=== PATIENT | female | born 1990 | race Caucasian/White ===

== ENCOUNTER → 2021-11-14 13:51 | Outpatient (CLI) | payer BC, SELFPAY ==
--- NOTE | 2021-11-14 13:55 | DI.US.S_ITS ---
PROCEDURE: US OB <= 14 WEEKS FETUS INDICATIONS: DATES OUTSIDE/PRIOR DATING DATA: Last menstrual period (LMP): 08/19/21. LMP-based estimated date of delivery ([facility]): 06/15/22. First dating scan (date and location): Current study, 11/14/21. Estimated date of delivery ([facility]) from first dating scan: 06/27/22. The calculations are made using the first-trimester ultrasound [facility] of 06/27/22. TECHNIQUE: Real-time scanning was performed of the fetus and maternal pelvic organs, with image documentation. Endovaginal scanning was also performed to better visualize the fetus and maternal ovaries. COMPARISON: None. FINDINGS: Embryo: An intrauterine is present including a single pole with an average crown-rump length of 1.46 cm corresponding to a seven week six day plus or minus five days gestation. There is detectable cardiac activity in the fetus at a rate of 163 beats per minute. A normal yolk sac and unfused amnion are present. Heart rate: 163 Maternal organs: The uterus is anteverted. The cervix is closed. No perigestational hemorrhage. The ovaries have a normal appearance. A 2.3 cm corpus luteum is present on the left ovary. IMPRESSION: 1. Single viable intrauterine with a gestational age by crown-rump length of seven weeks six days plus or minus five days and sonographically derived due date of 06/27/22. We strive to produce accurate, complete, and clear reports of imaging services. To assist us in improving patient care, this report was composed using standard report templates and voice recognition software. Therefore, it may contain abnormal punctuation, insertions and/or omissions. Occasional wrong-word or sound-alike substitutions may occur. Though we review the report and make efforts to correct it, we do recommend that the report be read carefully in proper context to recognize any text inaccuracies. Dictated by: Arline Vaca M.D. on 11/14/2021 at 14:40 Approved by: Arline Vaca M.D. on 11/14/2021 at 14:44
[2021-11-14 15:06] LABS: Add Manual Diff / Slide Review NO; Basophils Absolute Auto 100 /uL (0-100); Basophils Percent Auto 0.6 % (0-2); Eosinophils Absolute Auto 0 /uL (0-450); Eosinophils Percent Auto 0.5 % (2-4); Hematocrit 38.8 % (36-46); Hemoglobin 13.1 g/dL (12.0-16.0); Lymphocytes Absolute Auto 1500 /uL (1100-4500); Lymphocytes Percent Auto 17.1 % (25-40); Mean Corpuscular HGB Conc 33.7 % (30-36); Mean Corpuscular Hemoglobin 30.4 PG (26-34); Mean Corpuscular Volume 90.1 fL (80-100); Monocytes Absolute Auto 800 /uL (0-900); Monocytes Percent Auto 8.5 % (3-14); Neutrophils Absolute Auto 6600 /uL (1500-7000); Neutrophils Percent Auto 73.3 % (50-75); Platelet Count 333 X10^3/uL (150-400); Red Blood Cell Count 4.31 X10^6/uL (4.0-5.2); Red Cell Distribution Width 12.6 % (11.6-14.8)
[2021-11-14 16:20] LABS: Hepatitis B Surface Antigen NEGATIVE s/c (NEGATIVE); Rubella Antibody IgG 96.8 IU/mL (>15)
[2021-11-14 16:21] LABS: Appearance Urine UA CLEAR; Bilirubin Urine UA NEGATIVE (NEGATIVE); Color Urine UA YELLOW; Glucose Urine UA NEGATIVE (Negative); Ketones Urine UA NEGATIVE (NEGATIVE); Leukocyte Esterase Urine UA NEGATIVE (NEGATIVE); Nitrite Urine UA NEGATIVE (Negative); Occult Blood Urine UA NEGATIVE (Negative); Protein Urine UA NEGATIVE (Negative); Specific Gravity Urine UA <=1.005 (1.000-1.035); Urobilinogen Urine UA 0.2 E.U./dL (0.2)
[2021-11-14 16:35] LABS: HIV 1 & 2 Ab/Ag 4th Gen Combo NEGATIVE (NEGATIVE); Hep C Virus Ab w/Reflex Quant NEGATIVE s/c (NEGATIVE)
[2021-11-15 06:08] LABS: RPR Screen Non Reactive (Non Reactive)
[2021-11-15 10:55] LABS: Varicella IgG Antibody 611 index (Immune >165)
== END ==
PROVIDERS: PCP Physician Assistant; Referring Provider Family Medicine; Visit Provider Family Medicine
DX: Z36.87 Encounter for antenatal screening for uncertain dates (principal); Z3A.01 Less than 8 weeks gestation of pregnancy
CPT/HCPCS: 36415; 76801; 76817; 80055; 81003; 86787; 86803; 86850; 86900; 86901; 87086; 87389

== ENCOUNTER → 2022-01-24 14:14 | Outpatient (CLI) | payer BC, SELFPAY ==
[2022-01-27 14:20] LABS: AFP, Serum 50.2 ng/mL (.); Calc Gestational Age Ultrasound (.); Estriol, Free 1.22 ng/mL (.); Inhibin A, Dimeric 235.33 pg/mL (.); Inhibin A, MoM 1.19 (.); Maternal Ethnicity Caucasian (.); Maternal Weight 108 lbs (.); Number of Fetuses No (.); OSBR Risk 1 IN 10000 (.); Results Report (.); Test Results *Screen Negative* (.); hCG, MoM 1.21 (.); hCG, Serum 44924 mIU/mL (.)
== END ==
PROVIDERS: PCP Physician Assistant; Referring Provider Family Medicine; Visit Provider Family Medicine
DX: Z34.90 Encounter for supervision of normal pregnancy, unspecified, unspecified trimester (principal)
CPT/HCPCS: 36415; 82105; 82677; 84702; 86336

== ENCOUNTER → 2022-02-12 12:44 | Outpatient (CLI) | payer BC, SELFPAY ==
--- NOTE | 2022-02-12 12:45 | DI.US.S_ITS ---
PROCEDURE: US OB >= 14 WEEKS FETUS INDICATIONS: ANATOMY OUTSIDE/PRIOR DATING DATA: Last menstrual period (LMP): 09/08/2021. LMP-based estimated date of delivery ([facility]): 06/15/2022. First dating scan (date and location): 11/14/2021. Estimated date of delivery ([facility]) from first dating scan: 06/27/2022. The calculations are made using the ultrasound [facility] of 06/27/2022. TECHNIQUE: Real-time scanning was performed of the fetus, with image documentation and biometric measurements. COMPARISON: [facility], , OB <= 14 WEEKS FETUS, 11/14/2021, 14:03. FINDINGS: General: A single living intrauterine gestation is present. Presentation: Vertex. Placenta: Placental position is anterior, without previa. Amniotic fluid index: 15.4 cm, normal range is 5-24 cm. Single deepest vertical pocket is 4.7 cm. heart rate: 155 beats per minute. Maternal cervical canal: 3.6 cm long. Normal lower limit is 2.5 cm. biometrics: Biparietal diameter: 4.9 cm, 20 weeks 6 days Head circumference: 18.6 cm, 21 weeks 0 days Abdominal circumference: 16.0 cm, 21 weeks 1 day Femur length: 3.2 cm, 20 weeks 0 days Composite gestational age from initial ultrasound: 20 weeks 5 days Composite gestational age from present scan: 20 weeks 5 days Estimated weight and percentile: 366 g, 40th percentile Anatomic survey: Neuro: Ventricles are non-dilated at less than 10 mm. Cisterna magna is normal at 3-11 mm. Cerebellum is normal in size and morphology. Nuchal skin fold: Normal at less than 6 mm between 14-21 weeks gestational age. Face: Nose and lips, facial profile are normal. Spine: No evidence for spina bifida. Heart: 4-chambered heart is present, with normal ventricular outflow tracts. Diaphragm: Diaphragm is intact. Stomach: Left-sided stomach is present. Kidneys: No hydronephrosis. Normal is less than 5 mm in 2nd trimester, less than 7 mm in 3rd trimester. Cord: 3-vessel cord has orthotopic insertion. Bladder: Normal in size. Extremities: All 4 extremities identified. IMPRESSION: 1. Vicente living intrauterine at 20 weeks 5 days based on today's ultrasound. This is concordant with the prior ultrasound. There is expected interval growth. 2. Normal placenta and amniotic fluid. 3. Normal and complete anatomic survey. We strive to produce accurate, complete, and clear reports of imaging services. To assist us in improving patient care, this report was composed using standard report templates and voice recognition software. Therefore, it may contain abnormal punctuation, insertions and/or omissions. Occasional wrong-word or sound-alike substitutions may occur. Though we review the report and make efforts to correct it, we do recommend that the report be read carefully in proper context to recognize any text inaccuracies. Dictated by: Henrik Cornejo M.D. on 02/12/2022 at 15:45 Approved by: Henrik Cornejo M.D. on 02/12/2022 at 15:49
== END ==
PROVIDERS: PCP Physician Assistant; Referring Provider Family Medicine; Visit Provider Family Medicine
DX: Z36.89 Encounter for other specified antenatal screening (principal); Z3A.20 20 weeks gestation of pregnancy
CPT/HCPCS: 76811

== ENCOUNTER → 2022-03-21 12:53 | Outpatient (CLI) | payer BC, SELFPAY ==
[2022-03-21 14:48] LABS: Hematocrit 36.4 % (36-46); Hemoglobin 12.8 g/dL (12.0-16.0)
[2022-03-21 15:02] LABS: GTT (PREG) 1 Hour PP 50gm Dose 89 mg/dL (76-139)
== END ==
PROVIDERS: PCP Physician Assistant; Referring Provider Family Medicine; Visit Provider Family Medicine
DX: Z3A.36 36 weeks gestation of pregnancy (principal); Z34.92 Encounter for supervision of normal pregnancy, unspecified, second trimester; Z3A.26 26 weeks gestation of pregnancy
CPT/HCPCS: 36415; 82950; 85014; 85018

== ENCOUNTER → 2022-05-30 15:18 | Outpatient (CLI) | payer BC, SELFPAY ==
[2022-05-31 14:54] LABS: Strep Grp B PCR POS for Grp B Strep
== END ==
PROVIDERS: PCP Physician Assistant; Visit Provider Family Medicine
DX: Z34.93 Encounter for supervision of normal pregnancy, unspecified, third trimester (principal); Z3A.36 36 weeks gestation of pregnancy
CPT/HCPCS: 87653

== ENCOUNTER 2022-06-27 14:54 | Inpatient (IN) | payer BC, SELFPAY ==
--- NOTE | 2022-06-27 15:41 | P.HPOB_ITS ---
OB HPI Date/Time Date of admission: 06/27/22 Date Patient Seen: 06/27/22 Time Patient Seen: 15:41 History of Present Condition Chief complaint: obs [facility] Calculator Estimated Delivery Date Method Current WG Current Estimate 06/27/22 Ultrasound #1 40w 0d Other Estimates 06/15/22 LMP (Certain) 41w 5d Estimated Gestational Age (weeks): 40 : 1 Para: 0 Narrative: 31-year-old at 40 weeks gestation. She presented to her scheduled OB appointment today with leaking of clear fluid. No bleeding. She was sent to the center and found to be AmniSure positive. Baby has been active. She has been colby irregularly all day and rates her pain a 3/10. has been uncomplicated. She is quite petite and her is about a foot tolerated than her. Mother had all C-sections. care: good care, initiated at week # (10), number of visits (13) and pounds weight gain (31) Dating criteria OB: based on 1st trimester US only Ultrasounds: normal 1st trimester US and normal mid trimester US Obstetrical complications: none Medical complications OB: none Preadmission Labs Last OB Lab Results: Blood Type O Positive 11/14/21 14:43 Antibody Screen Negative 11/14/21 14:43 Hematocrit 40.0 % (36-46) 06/27/22 16:00 Hemoglobin 14.1 g/dL (12.0-16.0) 06/27/22 16:00 Hepatitis B Surface Antigen Negative s/c (NEGATIVE) 11/14/21 14 :43 Hepatitis C Antibody Negative s/c (NEGATIVE) 11/14/21 14:43 Rubella Antibody 96.8 IU/mL (>15) 11/14/21 14:43 Varicella-Zoster IgG Antibody 611 index (Immune >165) 11/14/21 14:43 Glucose 1 Hour 89 mg/dL (76-139) 03/21/22 12:57 Group B Streptococcus (PCR) Pos for grp b strep H 05/30/22 15:1 8 -: Chlamydia screen: negative, Gonorrhea screen: negative and Urine: negative -: PAP smear: Normal Genetic Screens: Quad screen: Normal External Labs -: Urine: negative Evaluation Evaluation Baseline heart rate: 135 Variability: Moderate (11-25) monitor accelerations: Present Monitor Decelerations: Absent Contraction Frequency (minutes): 3 Status: Category l Dilation (cm): 2 Effacement (%): 90 station: -2 Non-invasive Membranes Rupture Test: positive [facility] Medical History Abnormal Pap smear of cervix (~2010) Asthma (~2012) Seasonal allergies (~2013) Family History Father Hypertension Hyperlipidemia Mother Hypertension History of recurrent miscarriages Grandfather Myocardial infarction Grandmother History of blood clots Uterine cancer Factor V Leiden Grandfather Cancer Lung cancer Cancer of kidney Grandmother Heart valve disease Celiac disease Heart murmur Family/Other Factor V Leiden carrier Family/Other Breast cancer metastasized to lung Social History marital status: unmarried,living together number of children: 0 household members: significant other lives independently: Yes caregiver/support person: No housing: house pets and animals: Yes (2 dogs: safe) education level: college (BA Biology) occupational status: employed ([employer], 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 ) current occupational exposures/hazards: No special jerry needs: No seatbelt use: always do you feel safe at home: Yes Smoking Status: Never smoker second hand exposure: No alcohol intake: former (Pre-: 0-2 drinks/week. ) substance use type: does not use during the past year weight has: remained stable well-balanced diet: daily or most days daily servings fruits/ve-4 caffeine: No Type(s) of exercise: walking, bicycling and swimming frequency: 3-4 times per week duration: 30-45 minutes/day Meds Home Medications and Allergies Home Medications Medication Instructions Recorded Confirmed Type prenat.vits,romel,[id number] 1 tab PO DAILY 11/27/21 04/11/22 History Allergies Allergy/AdvReac Type Severity Reaction Status Date / Time No Known Drug Allergies Allergy Verified 04/11/22 14:24 Review of Systems Review of Systems ROS: Yes All systems reviewed with the patient and are negative except as otherwise documented OB Exam Narrative Exam Narrative: Temperature 36.3? blood pressure 112/67 heart rate 80 HENMT Head: normal to inspection Mouth: oral mucosae normal Eyes General: appearance normal, both eyes and all related structures Resp Effort & Inspection: normal respiratory effort Auscultation: clear to auscultation bilaterally Cardio Rate: regular rate Rhythm: regular rhythm Heart Sounds: S1 normal and S2 normal Extremities Lower extremity: Yes normal to inspection; No edema Presentation: vertex Estimated Weight (lbs): 7 Amniotic Fluid: clear Objective Labs Result Diagrams: 06/27/22 16:00 Assessment and Plan Assessment and Plan Assessment and Plan narrative: 31-year-old at 40 weeks gestation with spontaneous rupture of membranes at approximately 1:30 p.m. today with clear fluid. She is GBS positive. She is colby spontaneously though not yet in active labor. Plan Admit now, labs and COVID swab Begin penicillin for GBS prophylaxis Discussed starting Pitocin in the next couple of hours if she does not progress into active labor spontaneously Patient desires natural methods for pain control
[2022-06-27] MEDS: LACTATED RINGERS 1,000 ML 100 ML IV (16:16)
[2022-06-27] MEDS: PENICILLIN G POTASSIUM 5,000,000 UNIT in DEXTROSE 5% IN WATER 250 ML 250 UNIT IV (16:16)
[2022-06-27 16:19] LABS: Add Manual Diff / Slide Review NO; Basophils Absolute Auto 100 /uL (0-100); Basophils Percent Auto 0.5 % (0-2); Eosinophils Absolute Auto 100 /uL (0-450); Eosinophils Percent Auto 0.4 % (2-4); Hemoglobin 14.1 g/dL (12.0-16.0); Lymphocytes Absolute Auto 1200 /uL (1100-4500); Lymphocytes Percent Auto 8.5 % (25-40); Mean Corpuscular HGB Conc 35.1 % (30-36); Mean Corpuscular Hemoglobin 32.3 PG (26-34); Monocytes Absolute Auto 1200 /uL (0-900); Monocytes Percent Auto 8.5 % (3-14); Neutrophils Absolute Auto 12000 /uL (1500-7000); Neutrophils Percent Auto 82.1 % (50-75); Platelet Count 239 X10^3/uL (150-400); Red Blood Cell Count 4.35 X10^6/uL (4.0-5.2); Red Cell Distribution Width 12.8 % (11.6-14.8); White Blood Cell Count 14.6 X10^3/uL (4.5-11.0)
[2022-06-27 16:50] LABS: COVID19 -Nasal RAPID Negative (Negative)
[2022-06-27 18:18] VITALS: BP 112/67
[2022-06-27] MEDS: PENICILLIN G POTASSIUM 3,000,000 UNIT/50 ML FROZ.PIGGY 100 UNIT IV (19:25)
--- NOTE | 2022-06-27 21:17 | P.PCNOB_ITS ---
Labor & Delivery Delivery date: 06/27/22 Delivery monitor: external FHT Route of delivery: L&D Laceration Description: Vaginal - 1st Degree Delivery repair: chromic Estimated blood loss (mL): 300 Anesthesia Type: None Narrative: Patient is a 31-year-old at 40 weeks who gave on 06/27/22 at 8:35 p.m.. [facility]: 06/27/22 Hospital problems: 40 weeks of Spontaneous vaginal delivery STAGE I: Labor Patient presented after spontaneous rupture of membranes at approximately 1:30 p.m. with clear fluid. She progressed into labor spontaneously and utilized natural methods for pain control. She was complete at 7:30 p.m.. She was GBS positive and received 2 doses of antibiotics prior to stage II. EFM category 1 and 2 due to periods of minimal variability and non-recurrent variable decelerations with recovery back to category 1. STAGE II: Delivery She was complete and pushed for an hour and 5 minutes. At the end of stage II there was concern for a pseudosinusoidal pattern on the EFM. Resuscitation attempts were made with IV fluid bolus and oxygen. Dr. Chun, LAMINATION MACHINE OPERATOR, was standing by in case of the need for assisted delivery however patient pushed very well over 1 contraction and delivered a vigorous female infant at 8:35 p.m.. The head delivered easily, a nuchal cord was reduced then remainder of the body delivered. was placed on mother's abdomen. Cord was clamped and cut after approximately 1 minute delay. Apgars were 8 and 9. No resuscitation of the required beyond drying and stimulating. STAGE III: Placenta/Cord Placenta delivered at 8:41 p.m. after active management and appeared intact with a three-vessel cord. Pitocin bolus given after delivery of placenta in the IV and fundus firm. A short first-degree vaginal laceration was repaired with 3-0 chromic with good hemostasis. EBL: 300 mL. Needle and sponge counts were correct. The vagina was inspected and no items were left in situ. Patient was doing well with her and partner at bedside. [place] Baby 1: gender: Female Presentation: vertex Position: Right Occiput Anterior Placenta delivery description: Spontaneous Cord Vessel Description: 3 Vessels and Nuchal Cord (x1) score (1 min): 8 score (5 min): 9 Plan for aftercare: Routine care
[2022-06-27] MEDS: LIDOCAINE 1% 20 ML (22:14)
[2022-06-27] MEDS: DERMOPLAST SPRAY 20% 60 ML 1 SPRAY TOP (22:14)
[2022-06-27] MEDS: IBUPROFEN 600 MG TABLET PO (22:15)
[2022-06-27] MEDS: ACETAMINOPHEN 325 MG TABLET 650 MG PO (22:15)
[2022-06-28] MEDS: IBUPROFEN 600 MG TABLET PO ×3 (04:23→18:12)
[2022-06-28] MEDS: ACETAMINOPHEN 325 MG TABLET 650 MG PO ×3 (04:23→18:13)
--- NOTE | 2022-06-28 09:16 | PM.OBPN.1 ---
Subjective - OB Subjective Patient comments: no complaints [place] baby status: doing well and nursing well feeding status: exclusively breast feeding Date Patient Seen: 06/28/22 Time Patient Seen: 09:00 Interval history: No complaints this morning. Bleeding is moderate as expected and pain well controlled. She is ambulating and voiding without difficulty. Tolerating a diet. No issues in the . Exam Vital Signs (past 8 hours): Temperature 97.8? blood pressure 98/51 heart rate 65 Narrative Exam Narrative: General: Awake and alert, no acute distress. HEENT: NCAT, EOMI, moist oral mucosa CV: Regular rate and rhythm, no murmurs, rubs or gallops Lungs: CTAB, no wheezes, rales, or rhonchi Abdomen: Soft, nontender; bowel tones active; uterus firm at umbilicus with slight deviation to the right Extremities: Warm, no edema Objective Labs Result Diagrams: 06/27/22 16:00 Labs: Laboratory Results - last 24 hr 06/27/22 06/27/22 06/27/22 16:00 16:00 16:00 WBC 14.6 H RBC 4.35 Hgb 14.1 Hct 40.0 MCV 92.0 MCH 32.3 MCHC 35.1 RDW 12.8 Plt Count 239 Neut % (Auto) 82.1 H Lymph % (Auto) 8.5 L [place] % (Auto) 8.5 Eos % (Auto) 0.4 L Baso % (Auto) 0.5 Neut # (Auto) 51338 H Lymph # (Auto) 1200 [place] # (Auto) 1200 H Eos # (Auto) 100 Baso # (Auto) 100 SARS-CoV-2 (PCR) Negative Blood Type O Positive Antibody Screen Negative Assessment & Plan Plan day: 1 plan OB: routine care Comments: 31-year-old after uncomplicated spontaneous vaginal delivery. She is ambulating, voiding and tolerating a diet. Vaginal bleeding as expected. Pain well controlled. is not 24 hours old until later this evening. Anticipate discharge home tomorrow. Time Spent With Patient Time: Total time spent is greater than 50% in coordination of care (as documented) at patient's floor/unit and/or counseling patient: Time with patient: less than 15 minutes
[2022-06-28] MEDS: DOCUSATE 100 MG CAPSULE PO (18:13)
[2022-06-29] MEDS: IBUPROFEN 600 MG TABLET PO ×2 (00:21→09:09)
[2022-06-29] MEDS: ACETAMINOPHEN 325 MG TABLET 650 MG PO ×2 (00:21→09:10)
[2022-06-29] MEDS: DOCUSATE 100 MG CAPSULE PO (09:09)
--- NOTE | 2022-06-29 09:33 | P.DS_ITS ---
Discharge Providers Provider Date of admission: 06/27/22 14:54 Discharge Date: 06/29/22 Primary care physician: Yessica Mesa PA-C Consults: 06/28/22 21:44 Consult to Database Development Project Manager Routine Comment: Discharge provider: Judi Pantoja DO Summary Hospital Course Date Patient Seen: 06/29/22 Time Patient Seen: 10:01 Diagnoses: 40 weeks of Spontaneous vaginal delivery GBS positive Hospital Course: 31-year-old after uncomplicated spontaneous vaginal delivery at 40 weeks gestation on 06/27/22. Patient presented with spontaneous rupture of membranes with clear fluid and progressed into active labor. She received 2 doses of antibiotics for GBS prophylaxis prior to delivery. She delivered a vigorous female infant weighing 5 lb 7 oz. course uncomplicated. She was ambulating, voiding and passing flatus. Tolerating a diet and pain well controlled. Bleeding decreasing. No issues with breast-feeding with the . Advised patient to call for fevers, severe pain or bleeding through more than a pad an hour. Follow-up in clinic in 6 weeks or sooner if needed. Peripartum Data Infant Delivery Method: Natural Vaginal Laceration Description: Vaginal - 1st Degree complications: none [place] 1: Gender: Female Disposition of : home Discharge Diagnosis (1) 40 weeks gestation of : Status: Acute (2) Spontaneous vaginal delivery: Status: Acute Status at Discharge Cognitive/behavioral status at discharge: at baseline, oriented Functional status at discharge: independent ambulation Overall status at discharge: patient is progressing back to baseline Time Spent with Patient Time attestation: Total time spent providing and/or coordinating discharge services: Time spent: Less than 30 minutes Objective Labs Result Diagrams: 06/27/22 16:00 Exam Vital Signs (past 8 hours): Temperature 98.4? blood pressure 105/62 heart rate 62 respirations 16 Narrative Exam Narrative: General: Awake and alert, no acute distress. HEENT: NCAT, EOMI, moist oral mucosa CV: Regular rate and rhythm, no murmurs, rubs or gallops Lungs: CTAB, no wheezes, rales, or rhonchi Abdomen: Soft, nontender; bowel tones active; uterus firm at umbilicus Extremities: Warm, no edema Discharge Plan Discharge Plan Patient Disposition: Home Discharge orders & Medications Prescriptions: New docusate sodium 100 mg Capsule 100 mg PO DAILY Qty: 30 0RF ibuprofen 600 mg Tablet 600 mg PO Q6HR PRN (Reason: Pain, Mild (1-3)) Qty: 30 0RF Continued prenat.vits,romel,[id number] Tablet 1 tab PO DAILY Follow up/Referrals: Judi Pantoja DO [Physician] - 6 Weeks (We will schedule your 6 week visit when we see you at the visit) Yessica Mesa, PAAllenC [Primary Care Provider] - Skin/Wound/Dressing Care Report to your healthcare provider any signs of infection, such as:: chills, fever, night sweats and increased pain Visit Report/Discharge Packet Stand Alone Forms: Discharge: Care Visit Report Forms: Patient Portal/API, Stroke Signs & Symptoms Discharge Data Primary Care Provider: Yessica Mesa Attending Provider: Judi Pantoja Admit Date/Time: 06/27/22 14:54
== END 2022-06-29 10:40 | disposition home or self-care (01) | DRG 807 ==
PROVIDERS: Admitting Provider Family Medicine; PCP Physician Assistant; Referring Provider Family Medicine; Visit Provider Family Medicine
DX: O42.02 Full-term premature rupture of membranes, onset of labor within 24 hours of rupture (principal); Z37.0 Single live birth; O99.824 Streptococcus B carrier state complicating childbirth; O76 Abnormality in fetal heart rate and rhythm complicating labor and delivery; O69.81X0 Labor and delivery complicated by cord around neck, without compression, not applicable or unspecified; O70.0 First degree perineal laceration during delivery; Z3A.40 40 weeks gestation of pregnancy; Z20.822 Contact with and (suspected) exposure to COVID-19
CPT/HCPCS: 36415; 59050; 59400; 85025; 86850; 86900; 86901; 87635; C9803; G0378; G0379; J2540

== ENCOUNTER → 2022-08-13 15:28 | Outpatient (CLI) | payer BC, SELFPAY | PROVIDERS: PCP Physician Assistant; Referring Provider Family Medicine; Visit Provider Family Medicine | DX: Z13.89 Encounter for screening for other disorder (principal); Z83.2 Family history of diseases of the blood and blood-forming organs and certain disorders involving the immune mechanism | CPT/HCPCS: 36415; 81241 ==

== ENCOUNTER → 2024-07-08 10:56 | Outpatient (CLI) | payer BC, SELFPAY ==
[2024-07-08 12:10] LABS: Natera Collection Specimen Collected
[2024-07-08 12:20] LABS: Add Manual Diff / Slide Review NO; Basophils Absolute Auto 0 /uL (0-100); Basophils Percent Auto 0.3 % (0-2); Eosinophils Absolute Auto 100 /uL (0-450); Eosinophils Percent Auto 1.2 % (2-4); Hematocrit 39.6 % (36-46); Hemoglobin 13.8 g/dL (12.0-16.0); Lymphocytes Absolute Auto 2200 /uL (1100-4500); Lymphocytes Percent Auto 19.5 % (25-40); Mean Corpuscular HGB Conc 34.9 % (30-36); Mean Corpuscular Hemoglobin 29.8 PG (26-34); Mean Corpuscular Volume 85.5 fL (80-100); Monocytes Absolute Auto 700 /uL (0-900); Monocytes Percent Auto 6.7 % (3-14); Neutrophils Absolute Auto 8100 /uL (1500-7000); Neutrophils Percent Auto 72.3 % (50-75); Platelet Count 500 X10^3/uL (150-400); Red Blood Cell Count 4.63 X10^6/uL (4.0-5.2); White Blood Cell Count 11.2 X10^3/uL (4.5-11.0)
[2024-07-08 13:07] LABS: Appearance Urine UA CLEAR; Bilirubin Urine UA NEGATIVE (NEGATIVE); Color Urine UA YELLOW; Glucose Urine UA NEGATIVE (Negative); Ketones Urine UA NEGATIVE (NEGATIVE); Leukocyte Esterase Urine UA NEGATIVE (NEGATIVE); Nitrite Urine UA NEGATIVE (Negative); Occult Blood Urine UA NEGATIVE (Negative); Protein Urine UA NEGATIVE (Negative); Specific Gravity Urine UA <=1.005 (1.000-1.035); Urobilinogen Urine UA 0.2 E.U./dL (0.2)
[2024-07-08 13:10] LABS: pH Urine UA 5.5 (4.5-8.0)
[2024-07-09 06:10] LABS: RPR Screen Non Reactive (Non Reactive)
[2024-07-09 10:12] LABS: Varicella IgG Antibody 778 index (Immune >165)
[2024-07-09 20:06] LABS: HIV 1 & 2 Ab/Ag 4th Gen Combo NEGATIVE (NEGATIVE); Hep C Virus Ab w/Reflex Quant NEGATIVE s/c (NEGATIVE)
[2024-07-09 20:07] LABS: Hepatitis B Surface Antigen NEGATIVE s/c (NEGATIVE)
== END ==
LOC: LAB 10:57
PROVIDERS: PCP Student in an Organized Health Care Education/Training Program; Referring Provider Student in an Organized Health Care Education/Training Program; Visit Provider Student in an Organized Health Care Education/Training Program
DX: Z34.80 Encounter for supervision of other normal pregnancy, unspecified trimester (principal)
CPT/HCPCS: 36415; 80055; 81003; 86787; 86803; 86850; 86900; 86901; 87086; 87147; 87389

== ENCOUNTER → 2024-09-13 13:46 | Outpatient (CLI) | payer BC, SELFPAY ==
--- NOTE | 2024-09-13 13:48 | DI.US.S_ITS ---
PROCEDURE: US OB >= 14 WEEKS FETUS INDICATIONS: 20 wk anatomy scan OUTSIDE/PRIOR DATING DATA: Last menstrual period (LMP): 04/22/2024 LMP-based estimated date of delivery ([facility]): 01/27/2025 First dating scan (date and location): 07/08/2024 Estimated date of delivery ([facility]) from first dating scan: 01/27/2025 TECHNIQUE: Real-time scanning was performed of the fetus, with image documentation and biometric measurements. COMPARISON: 1st trimester dating not available for review FINDINGS: General: A single living intrauterine gestation is present. Presentation: Vertex. Placenta: Placental position is posterior , without previa. Amniotic fluid index: 16.5 cm, normal range is 5-24 cm. Single deepest vertical pocket is 4.8 cm. heart rate: 147 beats per minute. Maternal cervical canal: 4.2 cm long. Normal lower limit is 2.5 cm. biometrics: Biparietal diameter: 4.6 cm, 20 weeks Head circumference: 16.8 cm, 19 weeks and 3 days Abdominal circumference: 14.6 cm, 19 weeks and 6 days Femur length: 3.1 cm, 19 weeks and 4 days Clinically estimated gestational age: 20 weeks and 4 days Composite gestational age from present scan: 19 weeks and 5 days Estimated weight and percentile: 310 g, 11% Anatomic survey: Neuro: Ventricles are non-dilated at less than 10 mm. Cisterna magna is normal at 3-11 mm. Cerebellum is normal in size and morphology. Nuchal skin fold: Normal at less than 6 mm between 14-21 weeks gestational age. Face: Nose and lips, facial profile is normal. Spine: No evidence for spina bifida. Heart: 4-chambered heart is present, with normal ventricular outflow tracts. Diaphragm: Diaphragm is intact. Stomach: Left-sided stomach is present. Kidneys: No hydronephrosis. Normal is less than 5 mm in 2nd trimester, less than 7 mm in 3rd trimester. Cord: 3-vessel cord has orthotopic insertion. Bladder: Normal in size. Extremities: All 4 extremities identified. IMPRESSION: Living intrauterine gestation at 20 weeks and 4 days. EFW at the 11th percentile, lower limit of normal. No significant abnormalities on routine anatomic survey. Normal TONI. Dictated by: Colt Leon M.D. on 09/13/2024 at 18:24 Approved by: Clot Leon M.D. on 09/13/2024 at 18:28
== END ==
PROVIDERS: PCP Student in an Organized Health Care Education/Training Program; Referring Provider Student in an Organized Health Care Education/Training Program; Visit Provider Student in an Organized Health Care Education/Training Program
DX: Z3A.20 20 weeks gestation of pregnancy; Z34.82 Encounter for supervision of other normal pregnancy, second trimester
CPT/HCPCS: 76811

== ENCOUNTER → 2024-10-20 13:54 | Outpatient (CLI) | payer BC, SELFPAY ==
[2024-10-20 16:51] LABS: Hematocrit 35.3 % (36-46); Hemoglobin 12.1 g/dL (12.0-16.0)
[2024-10-21 14:32] LABS: GTT (PREG) 1 Hour PP 50gm Dose 150 mg/dL (76-139)
== END ==
PROVIDERS: PCP Student in an Organized Health Care Education/Training Program; Referring Provider Student in an Organized Health Care Education/Training Program; Visit Provider Student in an Organized Health Care Education/Training Program
DX: Z34.02 Encounter for supervision of normal first pregnancy, second trimester (principal); Z3A.24 24 weeks gestation of pregnancy
CPT/HCPCS: 82950; 85014; 85018

== ENCOUNTER → 2024-11-04 07:46 | Outpatient (CLI) | payer BC, SELFPAY ==
[2024-11-04 10:04] LABS: Glucose 1 Hour Gest 134 mg/dL (76-180)
[2024-11-04 12:19] LABS: Glucose 2 Hour Gest 85 mg/dL (76-155)
[2024-11-04 13:17] LABS: Glucose Tol Interp,Gestational INTERPRETATION
[2024-11-04 13:22] LABS: Glucose 3 Hour Gest 102 mg/dL (76-140)
[2024-11-04 20:28] LABS: Glucose Fasting Gestational 66 mg/dL (76-95)
== END ==
PROVIDERS: PCP Student in an Organized Health Care Education/Training Program; Referring Provider Family Medicine; Visit Provider Family Medicine
DX: R73.09 Other abnormal glucose (principal)
CPT/HCPCS: 36415; 82951; 82952

== ENCOUNTER → 2024-11-22 14:10 | Outpatient (CLI) | payer BC, SELFPAY ==
--- NOTE | 2024-11-22 14:11 | DI.US.S_ITS ---
PROCEDURE: US OB LIMITED INDICATIONS: Growth OUTSIDE/PRIOR DATING DATA: Last menstrual period (LMP): 04/22/2024. LMP-based estimated date of delivery ([facility]): 01/27/2025. First dating scan (date and location): 07/08/2024. Estimated date of delivery ([facility]) from first dating scan: 01/27/2025. The calculations are made using the Clinical/ultrasound [facility] of 01/27/2025. TECHNIQUE: Real-time scanning was performed of the fetus, with image documentation and biometric measurements. COMPARISON: [facility], , OB >= 14 WEEKS FETUS, 09/13/2024, 14:06. FINDINGS: General: A single living intrauterine gestation is present. Presentation: Transverse. Placenta: Placental position is posterior , without previa. Amniotic fluid index: 15.5 cm, normal range is 5-24 cm. Single deepest vertical pocket is 4.6 cm. heart rate: 137 beats per minute. Maternal cervical canal: 4.6 cm long. Normal lower limit is 2.5 cm. biometrics: Biparietal diameter: 7.6 cm 30 weeks 3 days Head circumference: 27.8 cm 30 weeks 3 days Abdominal circumference: 25.6 cm 29 weeks 5 days Femur length: 5.5 cm 28 weeks 6 days Clinically estimated gestational age: 30 weeks 4 days Composite gestational age from present scan: 29 weeks 6 days Estimated weight and percentile: 1416 g, 12th percentile Other: Not applicable. IMPRESSION: Single live intrauterine with gestational age today 29 weeks 6 days. Estimated weight is at the 12th percentile compared to 11th percentile on prior exam. Findings are concerning for possible intrauterine growth restriction/macrosomia. Continued clinical and ultrasound follow-up is recommended. We strive to produce accurate, complete, and clear reports of imaging services. To assist us in improving patient care, this report was composed using standard report templates and voice recognition software. Therefore, it may contain abnormal punctuation, insertions and/or omissions. Occasional wrong-word or sound-alike substitutions may occur. Though we review the report and make efforts to correct it, we do recommend that the report be read carefully in proper context to recognize any text inaccuracies. Dictated by: Pauly Mendez M.D. on 11/23/2024 at 22:24 Approved by: Pauly Mendez M.D. on 11/23/2024 at 22:26
== END ==
PROVIDERS: PCP Student in an Organized Health Care Education/Training Program; Referring Provider Student in an Organized Health Care Education/Training Program; Visit Provider Student in an Organized Health Care Education/Training Program
DX: O36.5930 Maternal care for other known or suspected poor fetal growth, third trimester, not applicable or unspecified (principal); Z3A.29 29 weeks gestation of pregnancy
CPT/HCPCS: 76815

== ENCOUNTER → 2024-12-20 08:31 | Outpatient (CLI) | payer BC, SELFPAY ==
--- NOTE | 2024-12-20 08:32 | DI.US.S_ITS ---
PROCEDURE: US OB LIMITED INDICATIONS: EFW OUTSIDE/PRIOR DATING DATA: Last menstrual period (LMP): 04/22/2024. LMP-based estimated date of delivery ([facility]): 01/27/2023. First dating scan (date and location): 07/08/2024. Estimated date of delivery ([facility]) from first dating scan: 01/27/2025. The calculations are made using the Clinical/ultrasound [facility] of 01/27/2025. TECHNIQUE: Real-time scanning was performed of the fetus, with image documentation and biometric measurements. COMPARISON: [facility], OB LIMITED, 11/22/2024, 14:31. FINDINGS: General: A single living intrauterine gestation is present. Presentation: Vertex. Placenta: Placental position is fundal , without previa. Amniotic fluid index: 13.4 cm, normal range is 5-24 cm. Single deepest vertical pocket is 5.9 cm. heart rate: 133 beats per minute. Maternal cervical canal: Not visualized biometrics: Biparietal diameter: 8.1 cm 32 weeks 4 days Head circumference: 30.6 cm 34 weeks 1 Abdominal circumference: 30.4 cm 34 weeks 3 days Femur length: 6.2 cm 32 weeks 2 days Clinically estimated gestational age: 34 weeks 4 days Composite gestational age from present scan: 34 weeks 3 days Estimated weight and percentile: 2225 g 19th percentile Other: Not applicable. IMPRESSION: Single live intrauterine with gestational age today of 34 weeks 3 days. TONI is within normal limits. We strive to produce accurate, complete, and clear reports of imaging services. To assist us in improving patient care, this report was composed using standard report templates and voice recognition software. Therefore, it may contain abnormal punctuation, insertions and/or omissions. Occasional wrong-word or sound-alike substitutions may occur. Though we review the report and make efforts to correct it, we do recommend that the report be read carefully in proper context to recognize any text inaccuracies. Dictated by: Pauly Mendez M.D. on 12/20/2024 at 15:21 Approved by: Pauly Mendez M.D. on 12/20/2024 at 15:23
== END ==
LOC: US 08:31
PROVIDERS: PCP Student in an Organized Health Care Education/Training Program; Referring Provider Student in an Organized Health Care Education/Training Program; Visit Provider Student in an Organized Health Care Education/Training Program
DX: O36.5930 Maternal care for other known or suspected poor fetal growth, third trimester, not applicable or unspecified (principal); Z3A.34 34 weeks gestation of pregnancy
CPT/HCPCS: 76815

== ENCOUNTER 2024-12-30 12:36 | Outpatient (CLI) | payer BC, SELFPAY | END 2024-12-30 13:25 | disposition home or self-care (01) | LOC: LABOR 13:01 → OB 01-02 07:10 | PROVIDERS: PCP Student in an Organized Health Care Education/Training Program; Referring Provider Student in an Organized Health Care Education/Training Program; Visit Provider Student in an Organized Health Care Education/Training Program | DX: O09.523 Supervision of elderly multigravida, third trimester (principal); Z36.85 Encounter for antenatal screening for Streptococcus B; Z3A.36 36 weeks gestation of pregnancy | CPT/HCPCS: 59025; 87653; G0378; G0379 ==

== ENCOUNTER → 2024-12-30 13:50 | Outpatient (CLI) | payer BC, SELFPAY ==
[2024-12-31 10:10] LABS: Strep Grp B PCR NEG for Grp B Strep
== END ==
PROVIDERS: PCP Student in an Organized Health Care Education/Training Program; Visit Provider Student in an Organized Health Care Education/Training Program
DX: Z36.85 Encounter for antenatal screening for Streptococcus B (principal); Z3A.36 36 weeks gestation of pregnancy
CPT/HCPCS: 87653

== ENCOUNTER 2025-01-06 12:17 | Outpatient (CLI) | payer BC, SELFPAY | END 2025-01-06 13:05 | disposition home or self-care (01) | LOC: LABOR 13:02 → OB 13:47 | PROVIDERS: PCP Student in an Organized Health Care Education/Training Program; Referring Provider Student in an Organized Health Care Education/Training Program; Visit Provider Student in an Organized Health Care Education/Training Program | DX: O09.523 Supervision of elderly multigravida, third trimester (principal); Z3A.37 37 weeks gestation of pregnancy | CPT/HCPCS: 59025; G0378; G0379 ==

== ENCOUNTER 2025-01-13 12:23 | Outpatient (CLI) | payer BC, SELFPAY | END 2025-01-13 13:00 | disposition home or self-care (01) | LOC: LABOR 12:35 → OB 14:19 | PROVIDERS: PCP Student in an Organized Health Care Education/Training Program; Referring Provider Student in an Organized Health Care Education/Training Program; Visit Provider Student in an Organized Health Care Education/Training Program | DX: O09.523 Supervision of elderly multigravida, third trimester (principal); Z3A.35 35 weeks gestation of pregnancy | CPT/HCPCS: 59025; G0378; G0379 ==

== ENCOUNTER 2025-01-20 12:23 | Outpatient (CLI) | payer BC, SELFPAY ==
--- NOTE | 2025-01-20 13:54 | DI.US.S_ITS ---
PROCEDURE: US OB BIOPHYSICAL PROFILE INDICATIONS: heart rate OUTSIDE/PRIOR DATING DATA: Last menstrual period (LMP): 04/22/2024. LMP-based estimated date of delivery ([facility]): 01/27/2025. First dating scan (date and location): 07/08/2024. Estimated date of delivery ([facility]) from first dating scan: 01/27/2025. The calculations are made using the Clinical/ultrasound [facility] of 01/27/2025. TECHNIQUE: Real-time scanning was performed of the fetus, with image documentation and biometric measurements. Biophysical profile was also obtained. [facility]24, 8:45. FINDINGS: General: A single living intrauterine gestation is present. Presentation: Vertex. Placenta: Placental position is fundal , without previa. Amniotic fluid index: 15.5 cm, normal range is 5-24 cm. Single deepest vertical pocket is 6.3 cm. heart rate: 136 beats per minute. Maternal cervical canal: Not assessed biometrics: Clinically estimated gestational age: 39 weeks 0 days Biophysical profile: Tone: 2 points. Movement: 2 points. Respiration: 2 points. Largest pocket of fluid: 2 points. IMPRESSION: Single live intrauterine with gestational age of 39 weeks 0 days. BPP 06/23 We strive to produce accurate, complete, and clear reports of imaging services. To assist us in improving patient care, this report was composed using standard report templates and voice recognition software. Therefore, it may contain abnormal punctuation, insertions and/or omissions. Occasional wrong-word or sound-alike substitutions may occur. Though we review the report and make efforts to correct it, we do recommend that the report be read carefully in proper context to recognize any text inaccuracies. Dictated by: Pauly Mendez M.D. on 01/20/2025 at 14:50 Approved by: Pauly Mendez M.D. on 01/20/2025 at 14:52
== END 2025-01-20 14:15 | disposition home or self-care (01) ==
LOC: LABOR 12:30 → OB 14:52
PROVIDERS: PCP Student in an Organized Health Care Education/Training Program; Referring Provider Student in an Organized Health Care Education/Training Program; Visit Provider Student in an Organized Health Care Education/Training Program
DX: O09.523 Supervision of elderly multigravida, third trimester (principal); Z3A.39 39 weeks gestation of pregnancy
CPT/HCPCS: 59025; 76815; 76819; G0378; G0379

== ENCOUNTER 2025-01-27 12:41 | Outpatient (CLI) | payer BC, SELFPAY | END 2025-01-27 13:14 | disposition home or self-care (01) | LOC: LABOR 12:47 → OB 15:19 | PROVIDERS: PCP Student in an Organized Health Care Education/Training Program; Referring Provider Student in an Organized Health Care Education/Training Program; Visit Provider Student in an Organized Health Care Education/Training Program | DX: O48.0 Post-term pregnancy (principal); O09.523 Supervision of elderly multigravida, third trimester; Z3A.40 40 weeks gestation of pregnancy | CPT/HCPCS: 59025; G0378; G0379 ==

== ENCOUNTER 2025-01-30 21:55 | Inpatient (IN) | payer BC, SELFPAY ==
[2025-01-30 22:33] VITALS: BP 108/60
[2025-01-30 23:10] LABS: Add Manual Diff / Slide Review NO; Basophils Absolute Auto 100 /uL (0-100); Basophils Percent Auto 0.9 % (0-2); Eosinophils Absolute Auto 100 /uL (0-450); Hematocrit 37.5 % (36-46); Hemoglobin 12.7 g/dL (12.0-16.0); Lymphocytes Absolute Auto 1800 /uL (1100-4500); Lymphocytes Percent Auto 23.9 % (25-40); Mean Corpuscular Hemoglobin 30.6 PG (26-34); Mean Corpuscular Volume 90.1 fL (80-100); Monocytes Absolute Auto 700 /uL (0-900); Monocytes Percent Auto 9.1 % (3-14); Neutrophils Absolute Auto 4800 /uL (1500-7000); Neutrophils Percent Auto 65.1 % (50-75); Platelet Count 231 X10^3/uL (150-400); Red Blood Cell Count 4.16 X10^6/uL (4.0-5.2); Red Cell Distribution Width 14.7 % (11.6-14.8); White Blood Cell Count 7.3 X10^3/uL (4.5-11.0)
[2025-01-30] MEDS: miSOPROStoL 25 MCG TABLET VAG (23:11)
[2025-01-31] MEDS: LACTATED RINGERS 1,000 ML 999 ML IV (00:36)
[2025-01-31] MEDS: OXYTOCIN PREMIX 30 UNIT/500 ML PLAST..BAG 334 UNIT IV (05:09)
--- NOTE | 2025-01-31 05:17 | PM.OBHP.IH.1 ---
OB HPI Date/Time Date of admission: 01/30/25 History of Present Condition Chief complaint: scheduled induction [facility] Calculator Estimated Delivery Date Method Current WG Current Estimate 01/27/25 LMP (Certain) 40w 4d : 2 Para: 1 Narrative: This is a 34 yo who presents for IOL at 40w3d for AMA. uncomplicated. CFDNA normal. GBS neg. care: none Dating criteria OB: LMP confirmed by 1st trimester US Ultrasounds: normal 1st trimester US and normal mid trimester US Obstetrical complications: none Medical complications OB: none Indications Indication for induction OB: other (AMA) Preadmission Labs Last OB Lab Results: Blood Type O Positive 01/30/25 23:00 Antibody Screen Negative 01/30/25 23:00 Hct 37.5 % (36-46) 01/30/25 23:00 Hgb 12.7 g/dL (12.0-16.0) 01/30/25 23:00 Hep Bs Antigen Negative s/c (NEGATIVE) 07/08/24 11:10 Hepatitis C Antibody Negative s/c (NEGATIVE) 07/08/24 11:10 Rubella Antibody 114.0 IU/mL (>15) 07/08/24 11:10 VZV IgG Antibody 778 index (Immune >165) 07/08/24 11:10 Glucose 1 Hr 50 gm 150 mg/dL (76-139) H 10/20/24 15:10 Group B Strep (PCR) Neg for grp b strep 12/30/24 13:50 Glucose Tolerance Testin hr and 3 hr (pass) Genetic Screens: Cell-free DNA: Normal Prior (ies) Past Pregnancies Del. Date GA/Weeks Labor Lgth Wt Sex Route Outcome Anesthesia Place Delv Breastfeed Preg Comp Name 06/27/22 40 7 5 lb 7.162 oz Female vaginal live - full term [facility] ~7 months none [place] Evaluation Evaluation Baseline heart rate: 145 Variability: Average (6-10) monitor accelerations: Present Monitor Decelerations: Absent Dilation (cm): 2 Effacement (%): 30 Dilation: 1-2 cm Effacement: 0-30% station: -3 Position of cervix: mid Consistency: soft Bo[place] score: 4 PFSH Medical History (Updated 12/22/24 @ 14:40 by Priscilla Miller MD) Spontaneous vaginal delivery (~06/27/22) 40 weeks gestation of Family history of factor V Leiden mutation Seasonal allergies (~2013) Abnormal Pap smear of cervix (~2010) Surgical History (Updated 06/27/24 @ 13:36 by Janell Tariq, RN) No pertinent past surgical history Family History (Updated 06/27/24 @ 13:42 by Janell Tariq, RN) Father Hypertension Hyperlipidemia Coronary artery disease Mother Hypertension History of recurrent miscarriages Grandfather Myocardial infarction Grandmother History of blood clots Factor V Leiden Cervical cancer Grandfather Cancer Lung cancer Cancer of kidney Smoker Grandmother Heart valve disease Celiac disease Heart murmur Uncle Factor V Leiden carrier Aunt Breast cancer metastasized to lung Smoker Social History marital status: unmarried,living together number of children: 1 household members: significant other and children lives independently: Yes caregiver/support person: No housing: house pets and animals: Yes (2 dogs) education level: college occupational status: employed current occupational exposures/hazards: No special jerry needs: No travel history: recent seatbelt use: always helmet use: Yes water heater temp set < 120 deg: Yes working smoke detector in home: Yes fire extinguisher in home: Yes carbon monox detector in home: Yes firearms in home: Yes firearms unloaded and locked: Yes do you feel safe at home: Yes Smoking Status: Never smoker second hand exposure: No alcohol intake: former substance use type: does not use during the past year weight has: remained stable well-balanced diet: daily or most days daily servings fruits/ve-1 caffeine: Yes (occasional cup coffee, not regularly) Type(s) of exercise: swimming, weight lifting and running frequency: 3-4 times per week duration: 30-45 minutes/day Meds Home Medications and Allergies Home Medications Medication Instructions Recorded Confirmed Type vitamin-ferrous sulfate 1 tab PO DAILY 06/27/24 01/30/25 History 27 mg iron-folic acid 0.8 mg tablet albuterol sulfate 90 mcg/actuation 2 puff inhalation Q6H PRN 07/08/24 01/30/25 Rx aerosol inhaler shortness of breath or wheezing #8.5 grams Allergies Allergy/AdvReac Type Severity Reaction Status Date / Time No Known Drug Allergies Allergy Verified 01/30/25 22:35 Objective Labs 01/30/25 23:00 Labs: Laboratory Results - last 24 hr 01/30/25 23:00 WBC 7.3 RBC 4.16 Hgb 12.7 Hct 37.5 MCV 90.1 MCH 30.6 MCHC 34.0 RDW 14.7 Plt Count 231 Neut % (Auto) 65.1 Lymph % (Auto) 23.9 L [place] % (Auto) 9.1 Eos % (Auto) 1.0 L Baso % (Auto) 0.9 Neut # (Auto) 4800 Lymph # (Auto) 1800 [place] # (Auto) 700 Eos # (Auto) 100 Baso # (Auto) 100 Blood Type O Positive Antibody Screen Negative Assessment and Plan Assessment and Plan Assessment and Plan narrative: 34 yo at 40w3d here for IOL for AMA. uncomplicated. GBS neg. -vaginal miso 25 mcg -cEFM -anticipate vaginal delivery Time-Based Coding :: 30 spent with patient and on the chart (including review of chart, obtaining history, exam, reviewing outside data, placing orders, documenting exam and treatment plan, and counseling patient) on 01/30.
--- NOTE | 2025-01-31 05:21 | PM.OBPRVD ---
Events: Labor Induction Labor & Delivery Delivery date: 01/31/25 Delivery Time: 05:02 Intrapartal Events: None Cervical ripening method: per misoprostal protocol Induction method: other (miso) Delivery monitor: external FHT Route of delivery: L&D Laceration Description: None Estimated blood loss (mL): 150 Narrative: This is a 34 yo G2 now P2 who presented for IOL for AMA. She received one dose of vaginal misoprostol and progressed to complete. Rupture of membranes were spontaneous. Over two contractions she pushed baby to position. heart rate was low so patient pushed without a contraction to deliver a vigorous female in the OA position. Cord was clamped at 2 minutes of life and cut by father. Placenta delivered with gentle traction. Pitocin bolus was started following delivery of placenta. No lacerations noted. Mom and baby recovering well. Baby 1: gender: Female Presentation: vertex Position: Left Occiput Anterior Placenta delivery description: Spontaneous Cord Vessel Description: 3 Vessels score (1 min): 8 score (5 min): 9 Plan for aftercare: Routine care
[2025-01-31] MEDS: DERMOPLAST SPRAY 20% 60 ML 1 SPRAY TOP (06:26)
[2025-01-31] MEDS: WITCH HAZEL/GLYCERIN PADS 1 EACH TOP (06:26)
[2025-01-31] MEDS: ACETAMINOPHEN 325 MG TABLET 650 MG PO ×2 (06:27→18:48)
[2025-01-31] MEDS: LANOLIN OINT 7 GM 1 APPLIC TOP (06:27)
[2025-01-31 08:46] VITALS: BP 94/55; PULSE 74; RESP 16; TEMP 36.7; O2SAT 98
[2025-01-31] MEDS: DOCUSATE 100 MG CAPSULE PO (12:32)
[2025-01-31] MEDS: IBUPROFEN 600 MG TABLET PO ×2 (12:32→23:28)
--- NOTE | 2025-02-01 08:57 | PM.OBDS.1 ---
Discharge Providers Provider Date of admission: 01/30/25 21:55 Discharge Date: 02/01/25 Primary care physician: Priscilla Miller MD Consults: 01/30/25 22:33 Consult to Anesthesiology Urgent Comment: Consulting Provider: Anesthesiologist Reason for consultation: Epidural 02/01/25 05:15 Consult to Telehealth Director Routine Comment: Discharge provider: Priscilla Miller MD Summary Hospital Course Date Patient Seen: 02/01/25 Time Patient Seen: 08:45 Diagnoses: Term , AMA Hospital Course: This is a 34 yo who presented for IOL at 40w3d for AMA. uncomplicated. CFDNA normal. GBS neg. at 40w4d following 1 dose vag miso. No anesthesia for delivery. No delivery complications. Recovered well . without difficulty. Peripartum Data Infant Delivery Method: Natural Vaginal Laceration Description: None complications: none Status at Discharge Cognitive/behavioral status at discharge: oriented Functional status at discharge: independent ambulation Overall status at discharge: patient is back to baseline Time Spent with Patient Time attestation: Total time spent providing and/or coordinating discharge services: 35 minutes Time spent: Greater than 30 minutes Objective Labs 01/30/25 23:00 Exam Narrative Exam Narrative: NAD, breathing easily Discharge Plan Discharge Plan Patient Disposition: Home Discharge orders & Medications Prescriptions: New acetaminophen 325 mg Tablet 650 mg PO Q6HR PRN (Reason: Pain, Mild (1-3)) Qty: 30 0RF ibuprofen 600 mg Tablet 600 mg PO Q6HR PRN (Reason: Pain, Mild (1-3)) Qty: 30 0RF docusate sodium 100 mg Capsule 100 mg PO DAILY Qty: 14 0RF Continued albuterol sulfate 90 mcg/actuation HFA aerosol inhaler 2 puff inhalation Q6H PRN (Reason: shortness of breath or wheezing) Qty: 8.5 3RF vit-ferrous sulfat-FA 27 mg iron- 0.8 mg tablet 1 tab PO DAILY Follow up/Referrals: Priscilla Miller MD [Primary Care Provider] - (Follow up with Dr Miller in 6 weeks on ThursdayMarch 14 at 3:00pm. Please arrive at 2:45pm. ) Visit Report/Discharge Packet Instructions: DI for Labor and Delivery, Vaginal Stand Alone Forms: Discharge: Care, Patient Portal/API, Stroke Signs & Symptoms Discharge Data Primary Care Provider: Priscilla Miller Discharges patient from system. Discharge Date/Time: 02/01/25 11:48
[2025-02-01 11:19] VITALS: BP 94/55; PULSE 74; RESP 16; TEMP 36.7
== END 2025-02-01 11:48 | disposition home or self-care (01) | DRG 807 ==
PROVIDERS: Admitting Provider Student in an Organized Health Care Education/Training Program; PCP Student in an Organized Health Care Education/Training Program; Referring Provider Student in an Organized Health Care Education/Training Program; Visit Provider Student in an Organized Health Care Education/Training Program
DX: O80 Encounter for full-term uncomplicated delivery (principal); Z37.0 Single live birth; Z3A.40 40 weeks gestation of pregnancy
CPT/HCPCS: 36415; 59050; 59200; 59400; 85025; 86850; 86900; 86901; G0379; J2590